=== PATIENT | female | born 1950 | race Caucasian/White ===

== ENCOUNTER → 2017-02-13 | Outpatient (CLI) | payer MEDICARE ==
[~2017-02-13] MED LIST: ALPR0.5T6 PO; CHOL20003 PO; CYAN10008 PO; FENO145T32 PO; GINK120C PO; Iron PO; MAGN30TA3 PO; MELO-184 PO; MULT-717 PO; PANT40TA3 PO; PYRI100T2 PO
== END | disposition home or self-care (01) ==
LOC: STAR 09:06
PROVIDERS: ATTEND Neurological Surgery
DX: Z01.818 Encounter for other preprocedural examination (principal); M47.22 Other spondylosis with radiculopathy, cervical region; R79.1 Abnormal coagulation profile
CPT/HCPCS: 36415; 71020; 85610; 85730; 93005

== ENCOUNTER 2017-02-22 09:00 | Inpatient (IN) | payer MEDICARE ==
[~2017-02-22] VITALS: Ht 170.2 cm; Wt 108.5 kg
[~2017-02-22 09:00] MED LIST changes: +BACITRACIN 50,000 UNIT ONE; +BUPIVACAINE/PF-EPI 0.25% 1:200K ONE; +THROMBIN 5,000 UNIT VIAL TP ONE; +VANCOMYCIN 1,000 MG ONE
[2017-02-22 12:30] VITALS: BP 160/87
[2017-02-22] MEDS ORDERED: LACTATED RINGERS 1,000 ML IV SCH (12:36)
[2017-02-22] MEDS ORDERED: FENTANYL PF 250 MCG/5ML ONE (15:02)
[2017-02-22] MEDS ORDERED: MIDAZOLAM 1 MG/ML, 2ML ONE (15:02)
[2017-02-22] MEDS ORDERED: ROCURONIUM 10 MG/ML ONE (16:27)
[2017-02-22] MEDS ORDERED: PROPOFOL 10 MG/ML, 20ML ONE ×2 (16:27)
[2017-02-22] MEDS ORDERED: DEXAMETHASONE 4 MG/ML, 1ML ONE (16:27)
[2017-02-22] MEDS ORDERED: ONDANSETRON 2MG/ML, 2ML ONE ×2 (16:27→18:44)
[2017-02-22] MEDS ORDERED: HYDROmorphone 1 MG/ML, 1ML IV PRN (17:30)
[2017-02-22] MEDS ORDERED: ALBUTEROL SULFATE 2.5 MG/3 ML NPPB PRN (17:30)
[2017-02-22] MEDS ORDERED: HALOPERIDOL 5 MG/ML IV PRN (17:30)
[2017-02-22] MEDS ORDERED: METOPROLOL 1 MG/ML, 5ML IV PRN (17:30)
[2017-02-22] MEDS ORDERED: hydrALAzine 20 MG/ML, 1ML IV PRN (17:30)
[2017-02-22] MEDS ORDERED: ACETAMINOPHEN 325 MG TABLET PO PRN (17:30)
[2017-02-22] MEDS ORDERED: OXYcodone 5 MG/5 ML ORAL.SOL UDC PO PRN (17:30)
[2017-02-22] MEDS ORDERED: FENTANYL PF 100 MCG/2ML ONE ×2 (17:57→18:44)
[2017-02-22] MEDS ORDERED: HYDROmorphone 2 MG/ML, 1ML ONE (18:44)
[2017-02-22] MEDS: FENTANYL PF 100 MCG/2ML IV PRN ×2 (18:54→19:12)
[2017-02-22] MEDS ORDERED: HYDROcodone/APAP 5/325 TABLET PO PRN (20:30)
[2017-02-22] MEDS ORDERED: DIPHENHYDRAMINE 50 MG/ML, 1ML IM PRN (20:30)
[2017-02-22] MEDS ORDERED: morphine SULFATE 10 MG/ML, 1ML IV PRN (20:30)
[2017-02-22] MEDS ORDERED: MAGNESIUM HYDROXIDE 8%, 30ML UDC PO PRN (20:30)
[2017-02-22] MEDS ORDERED: HYDROmorphone 2MG TABLET PO PRN (20:30)
[2017-02-22] MEDS ORDERED: PROMETHAZINE 25 MG/ML, 1ML IM PRN (20:30)
[2017-02-22] MEDS ORDERED: BISACODYL 10 MG SUPP PR PRN (20:30)
[2017-02-22] MEDS ORDERED: LABETALOL 5MG/ML, 20ML IV PRN (20:30)
[2017-02-22] MEDS ORDERED: DIAZEPAM 5 MG TABLET PO PRN (20:30)
[2017-02-22] MEDS ORDERED: DIPHENHYDRAMINE 25 MG CAPSULE PO PRN (20:30)
[2017-02-22] MEDS ORDERED: METHOCARBAMOL 750 MG TABLET PO PRN (20:30)
[2017-02-22] MEDS ORDERED: DIAZEPAM 5 MG/ML, 2ML IV PRN (20:30)
[2017-02-22] MEDS ORDERED: HYDROmorphone 2 MG/ML, 1ML IM PRN (20:30)
[2017-02-22] MEDS ORDERED: ONDANSETRON 2MG/ML, 2ML IV PRN (20:30)
[2017-02-22] MEDS ORDERED: CYCLOBENZAPRINE 10 MG TABLET PO PRN (20:30)
[2017-02-22] MEDS ORDERED: OXYcodone/APAP 5/325MG TABLET PO PRN (20:30)
[2017-02-22] MEDS ORDERED: PHARMACY MAY ADJ FOR RENAL FX MC PRN (22:30)
[2017-02-22] MEDS: CEFAZOLIN PMX 1GM/50ML 50 ML IVPB SCH (23:03)
[2017-02-22] MEDS: NS + 20MEQ KCL 1,000 ML IV SCH (23:04)
[2017-02-23 00:20] VITALS: BP 135/73
[2017-02-23 04:00] VITALS: BP 123/72
[2017-02-23] MEDS: CEFAZOLIN PMX 1GM/50ML 50 ML IVPB SCH (06:46)
[2017-02-23 07:10] VITALS: BP 110/66
[2017-02-23] MEDS ORDERED: PANTOPROZOLE 40MG TABLET PO SCH (07:30)
[2017-02-23] MEDS ORDERED: CHOLECALCIFEROL 1,000 UNIT TABLET PO SCH (09:00)
[2017-02-23] MEDS ORDERED: SENNA/DOCUSATE TABLET PO SCH (09:00)
[2017-02-23] MEDS ORDERED: CYANOCOBALAMIN 1,000 MCG TABLET PO SCH (09:00)
[2017-02-23] MEDS ORDERED: FERROUS SULFATE 325 MG TABLET PO SCH (09:00)
[2017-02-23] MEDS: NS + 20MEQ KCL 1,000 ML IV SCH (09:00)
[2017-02-23] MEDS ORDERED: FENOFIBRATE 145 MG TABLET PO SCH (09:00)
[2017-02-23] MEDS ORDERED: PYRIDOXINE 50MG TABLET PO SCH (09:00)
[2017-02-23 14:05] VITALS: BP 109/67
[2017-02-23] MEDS ORDERED: HYDR-3240 PO (14:39)
== END 2017-02-23 15:31 | disposition home or self-care (01) | DRG 473 ==
LOC: ORIP 11:53 → 4NOR 19:55 → DCLOUNGE 02-23 15:25
PROVIDERS: ADMIT Neurological Surgery; ATTEND Neurological Surgery
PROC: 0RP104Z Removal of Internal Fixation Device from Cervical Vertebral Joint, Open Approach (ICD-10-PCS; 2017-02-22)
PROC: 0RB30ZZ Excision of Cervical Vertebral Disc, Open Approach (ICD-10-PCS; 2017-02-22)
PROC: 01N50ZZ Release Median Nerve, Open Approach (ICD-10-PCS; principal; 2017-02-22 15:00)
PROC: 0RG10A0 Fusion of Cervical Vertebral Joint with Interbody Fusion Device, Anterior Approach, Anterior Column, Open Approach (ICD-10-PCS; 2017-02-22 15:00)
DX: M47.22 Other spondylosis with radiculopathy, cervical region (principal); G56.01 Carpal tunnel syndrome, right upper limb; K21.9 Gastro-esophageal reflux disease without esophagitis; Z98.1 Arthrodesis status; Z88.8 Allergy status to other drugs, medicaments and biological substances; Z88.6 Allergy status to analgesic agent; Z82.49 Family history of ischemic heart disease and other diseases of the circulatory system; Z82.3 Family history of stroke
CPT/HCPCS: 72040; C1713; J0690; J1100; J1170; J2250; J2270; J2405; J2704; J3010; J3370; J3480; C1762